=== PATIENT | female | born 1960 | race Caucasian/White ===

== ENCOUNTER 2023-12-13 09:47 | Emergency (ER) | payer BC, SELFPAY ==
[2023-12-13 10:03] VITALS: BP 149/96
[2023-12-13 10:55] VITALS: BMI 29.1
--- NOTE | 2023-12-13 11:00 | ED.GENMED ---
History of Present Illness
General
Chief Complaint: Abdominal Symptoms
Time Seen by Provider: 12/13/23 10:31
Travel History
Have you had any contact with someone who has COVID-19?: No
Do you have any symptoms of coronavirus? Fever > 100 degrees, chills, cough, shortness of breath, sore throat, loss of taste or smell, muscle aches, or headache?: No
History of Present Illness
History of Present Illness:
63-year-old female with history of diverticulitis presents the emergency department for evaluation of left-sided abdominal tenderness gradually worsening over the past 3 weeks associated with vomiting and diarrhea. Diarrhea has become more watery
and loose with scant amounts of blood over the past few days. Feels comparable to prior bout of diverticulitis. Denies any Fever, chills, sweats.
Past History
Past History
ED Past Medical History: None
ED Past Surgical History: None
Social History
Tobacco: Smoker
Living: with family
Family History
Family History: Other (Noncontributory)
Review of Systems
Review of Systems
Allergies reviewed?: Yes
All Other Systems: ROS reviewed and negative except as documented in HPI and ROS
Phy Exam
Physical Exam
Physical Exam:
GEN: Well appearing, NAD, WDWN
Eyes: PERRLA, EOMs intact, no scleral icterus
HENT: NCAT, oral mucosa moist
Lungs: CTAB, no wheezes, rales, rhonchi, normal chest wall excursion
Cardiac: RRR, no M/R/G, no peripheral edema. Radial pulses 2+ bilat
Abdomen: S, NT, ND, NABS, no masses or hepatosplenomegaly
Neuro: AO x 3
MSK: No gross deformity or ecchymosis
Skin: No rashes, petechiae. Normal color, no pallor or jaundice.
Psych: Calm, cooperative, proper hygiene
Course
Orders/Labs/Results
Orders:
Orders
12/13/23 10:48
IV Insert/Care/Rem.- Treatment PRN
12/13/23 10:56
CT Abd/Pel (IV only)-DH only Urgent
Comment:
Reason For Exam: LLQ pain
0.9% Sodium Chloride 1000 ml [Nss] 1,000 ml IV BOLUS
Ketorolac [Toradol] 15 mg IV NOW STA
Ondansetron Injectable [Zofran] 4 mg IV NOW STA
12/13/23 11:01
Complete Blood Count/With Diff Urgent
Comprehensive Metabolic Panel Urgent
Lipase Urgent
Abnormal Lab Results
12/13/23
11:01
WBC 14.2 H 10^3/uL
(4.8-10.8)
MPV 11.1 H fL
(7.4-10.4)
Abs Immat Gran (auto) 0.1 H 10^3/uL
(0-0.05)
Absolute Neuts (auto) 11.5 H 10^3/uL
(1.4-6.5)
Absolute Monos (auto) 1.0 H 10^3/uL
(0.1-0.6)
Immature Gran % 0.6 H %
(0-0.5)
Neutrophils % 81.2 H %
(42.2-75.2)
Lymphocytes % 10.3 L %
(20.5-51.1)
Alkaline Phosphatase 127 H U/L
(38-126)
12/13/23 11:01
12/13/23 11:01
Vital Signs
Initial and Last Documented VS:
Initial Vital Signs
Temp Pulse Resp BP Pulse Ox
97.9 F 105 16 149/96 94
12/13/23 10:03 12/13/23 10:03 12/13/23 10:03 12/13/23 10:03 12/13/23 10:03
Last Documented Vital Signs
Temp Pulse Resp BP Pulse Ox
97.9 F 85 16 116/62 95
12/13/23 10:03 12/13/23 13:00 12/13/23 13:00 12/13/23 13:00 12/13/23 13:00
MDM/Problems Addressed
MDM/Problems Addressed:
63-year-old female presents with left-sided abdominal discomfort. Her workup reveals mild leukocytosis but otherwise normal electrolytes. She is clinically well-appearing with only minimal tenderness on exam. CT was obtained which shows mild
acute diverticulitis. She is allergic to penicillins thus we will treat her with ciprofloxacin and metronidazole. She is tolerating p.o. fluids was given 1 L of IV fluids for rehydration in the emergency department. Discussed importance of clear
liquid diet and preventatively a high-fiber diet to begin after completion of antibiotics. Further supportive care and return parameters discussed
*Critical Care Note
Total Time (30-74mins, 75-104mins- exclusive of procedures): Not Applicable
ED Attending Note
-
Portions of this chart may have been created with voice recognition software.� Occasional wrong word or��sound alike� substitutions may have occurred due to the inherent limitations of voice recognition software.
Discharge Plan
Departure
Patient Disposition: Home (Routine Discharge)
Date of Disposition: 12/13/23
Time of Disposition: 12:41
Patient with high blood pressure during this ER visit?: No
Discharge Problem:
Diverticulitis
Instructions: Diverticulitis (DC), Clear Liquid Diet
Prescriptions:
New
ciprofloxacin HCl [Cipro] 500 mg tablet
500 mg PO BID 10 Days Qty: 20 0RF
metronidazole 500 mg tablet
500 mg PO Q8H 10 Days Qty: 30 0RF
No Action
ibuprofen [Advil Liqui-Gel] 200 MG capsule
1 - 3 mg PO Q6HPRN PRN (Reason: pain)
hydrocodone-acetaminophen [Vicodin] 1 EACH tablet
1 ea PO Q6HPRN PRN (Reason: pain) Qty: 15 0RF
doxycycline hyclate 100 MG tablet
100 mg PO BID Qty: 28 0RF
methylprednisolone [Medrol (Osiel)] 4 MG tablets,dose pack
4 tab PO . DIRECT Qty: 1 0RF
Referrals:
Erin Norris MD [Family Provider] -
Activity Restrictions/Additional Instructions:
Clear liquid diet x 48 hours, then progress to normal diet as tolerated
HIGH FIBER DIET (25-35g daily) is important to prevent future disease, however do not start this until after antibiotics are completed
Return to the ER if you develop a fever, or worsening pain
Interventions
Interventions:
*Risk Screen - Suicide Last Done: 12/13/23 10:55
*General Assessment Last Done: 12/13/23 10:55
*Neglect/Abuse Screening Last Done: 12/13/23 10:55
ED- Fall Risk Assessment Last Done: 12/13/23 10:55
*ED COVID-19 Vaccine History Last Done: 12/13/23 10:08
*Nursing Disposition Last Done: 12/13/23 13:05
YQ-Rxgnum-Olpyrsxrmf Assessment Last Done: 12/13/23 10:55
Discharge Date and Time
Discharge Date/Time: 12/13/23 13:05
[2023-12-13 11:13] LABS: % Basophils 0.4 % (0-2); % Eosinophils 0.4 % (0-6); % Immature Granulocytes 0.6 % (0-0.5); % Lymphocytes 10.3 % (20.5-51.1); % Monocytes 7.1 % (1.7-9.3); % Neutrophils 81.2 % (42.2-75.2); Absolute Basophils 0.1 10^3/uL (0-0.2); Absolute Eosinophils 0.1 10^3/uL (0-0.7); Absolute Immature Granulocytes 0.1 10^3/uL (0-0.05); Absolute Lymphocytes 1.5 10^3/uL (1.2-3.4); Absolute Neutrophils 11.5 10^3/uL (1.4-6.5); Hemoglobin 14.5 g/dL (12.0-16.0); Mean Corp Hgb Conc. 34.5 g/dL (33.0-37.0); Mean Corpuscular Hgb 30.4 pg (27.0-31.0); Mean Corpuscular Volume 88.1 fL (81.0-99.0); Mean Platelet Volume 11.1 fL (7.4-10.4); Nucleated Red Blood Cells % 0 %; Platelet Count 307 10^3/uL (130-400); Red Blood Cell Count 4.77 10^6/uL (4.20-5.40); Red Cell Dist. Width 13.1 % (11.5-14.5); White Blood Cell Count 14.2 10^3/uL (4.8-10.8)
[2023-12-13 11:26] LABS: ALT (SGPT) 27 U/L (0-35); AST (SGOT) 25 U/L (14-36); Albumin 4.8 g/dl (3.5-5.0); Alkaline Phosphatase 127 U/L (38-126); Blood Urea Nitrogen 10 mg/dl (7-17); Calcium 9.6 mg/dl (8.4-10.2); Carbon Dioxide 23 mmol/L (22-30); Chloride 106 mmol/L (98-107); Estimated Creatinine Clearance 85 ml/min; Glucose 99 mg/dl (70-99); Lipase 103 U/L (23-300); Potassium 3.9 mmol/L (3.5-5.1); Sodium 139 mmol/L (135-145); Total Bilirubin 0.5 mg/dl (0.2-1.3); Total Protein 7.4 g/dl (6.3-8.2); eGFR > 60.00
[2023-12-13] MEDS: NSS 1000 IV (11:37)
[2023-12-13] MEDS: TORADOL 15 MG IV (11:39)
[2023-12-13] MEDS: ZOFRAN 4 MG IV (11:39)
[2023-12-13 11:43] VITALS: BP 126/70
[2023-12-13 13:00] VITALS: BP 116/62
--- NOTE | 2023-12-13 13:00 | EDRN ---
Pt was awoken from just having a nap for her discharge.
== END 2023-12-13 13:05 | disposition home or self-care (01) ==
LOC: EMR 09:47
PROVIDERS: Physician Assistant; EMERGENCY PHYSICIAN Emergency Medicine; FAMILY PHYSICIAN Internal Medicine
DX: K57.32 Diverticulitis of large intestine without perforation or abscess without bleeding (principal); F17.200 Nicotine dependence, unspecified, uncomplicated; Z88.0 Allergy status to penicillin
CPT/HCPCS: 99284; 96374; 96375; 96361; 74177; 80053; 83690; 85025; Q9967

== ENCOUNTER → 2024-01-14 12:09 | Outpatient (REF) | payer BC, SELFPAY ==
[2024-01-14 14:27] LABS: % Eosinophils 1.5 % (0-6); % Immature Granulocytes 0.7 % (0-0.5); % Lymphocytes 35.6 % (20.5-51.1); % Monocytes 6.8 % (1.7-9.3); % Neutrophils 54.4 % (42.2-75.2); Absolute Basophils 0.1 10^3/uL (0-0.2); Absolute Eosinophils 0.1 10^3/uL (0-0.7); Absolute Immature Granulocytes 0.1 10^3/uL (0-0.05); Absolute Lymphocytes 2.4 10^3/uL (1.2-3.4); Absolute Monocytes 0.5 10^3/uL (0.1-0.6); Absolute Neutrophils 3.7 10^3/uL (1.4-6.5); Hemoglobin 14.9 g/dL (12.0-16.0); Mean Corp Hgb Conc. 33.1 g/dL (33.0-37.0); Mean Corpuscular Hgb 29.7 pg (27.0-31.0); Mean Corpuscular Volume 89.6 fL (81.0-99.0); Mean Platelet Volume 11.6 fL (7.4-10.4); Nucleated Red Blood Cells % 0 %; Platelet Count 291 10^3/uL (130-400); Red Blood Cell Count 5.02 10^6/uL (4.20-5.40); Red Cell Dist. Width 13.2 % (11.5-14.5); White Blood Cell Count 6.7 10^3/uL (4.8-10.8)
[2024-01-14 14:42] LABS: ALT (SGPT) 27 U/L (0-35); AST (SGOT) 32 U/L (14-36); Albumin 4.6 g/dl (3.5-5.0); Alkaline Phosphatase 120 U/L (38-126); Blood Urea Nitrogen 9 mg/dl (7-17); Carbon Dioxide 29 mmol/L (22-30); Chloride 105 mmol/L (98-107); Glucose 86 mg/dl (70-99); Potassium 4.1 mmol/L (3.5-5.1); Sodium 140 mmol/L (135-145); Total Bilirubin 0.4 mg/dl (0.2-1.3); Total Protein 7.2 g/dl (6.3-8.2); eGFR > 60.00
== END ==
LOC: REG 12:09
PROVIDERS: ATTENDING PHYSICIAN Nurse Practitioner Family
DX: R10.32 Left lower quadrant pain (principal); K57.92 Diverticulitis of intestine, part unspecified, without perforation or abscess without bleeding
CPT/HCPCS: 36415; 74177; 80053; 85025; Q9967

== ENCOUNTER → 2024-04-29 09:39 | Outpatient (REF) | payer BC, SELFPAY | LOC: WDC 09:39 | PROVIDERS: ATTENDING PHYSICIAN Nurse Practitioner Family | DX: Z12.31 Encounter for screening mammogram for malignant neoplasm of breast (principal) | CPT/HCPCS: 77063; 77067 ==

== ENCOUNTER 2024-08-08 17:07 | Emergency (ER) | payer BC, SELFPAY ==
[2024-08-08 17:19] VITALS: BP 148/89
[2024-08-08 17:35] LABS: % Basophils 0.8 % (0-2); % Immature Granulocytes 0.6 % (0-0.5); % Lymphocytes 35.5 % (20.5-51.1); % Monocytes 7.7 % (1.7-9.3); % Neutrophils 53.4 % (42.2-75.2); Absolute Basophils 0.1 10^3/uL (0-0.2); Absolute Eosinophils 0.2 10^3/uL (0-0.7); Absolute Immature Granulocytes 0.1 10^3/uL (0-0.05); Absolute Lymphocytes 3.1 10^3/uL (1.2-3.4); Absolute Monocytes 0.7 10^3/uL (0.1-0.6); Absolute Neutrophils 4.7 10^3/uL (1.4-6.5); Hematocrit 40.5 % (37.0-47.0); Hemoglobin 14.1 g/dL (12.0-16.0); Mean Corp Hgb Conc. 34.8 g/dL (33.0-37.0); Mean Corpuscular Hgb 30.2 pg (27.0-31.0); Mean Corpuscular Volume 86.7 fL (81.0-99.0); Mean Platelet Volume 10.8 fL (7.4-10.4); Nucleated Red Blood Cells % 0 %; Platelet Count 278 10^3/uL (130-400); Red Blood Cell Count 4.67 10^6/uL (4.20-5.40); Red Cell Dist. Width 13.1 % (11.5-14.5); White Blood Cell Count 8.9 10^3/uL (4.8-10.8)
[2024-08-08 17:50] LABS: ALT (SGPT) 18 U/L (0-35); AST (SGOT) 23 U/L (14-36); Albumin 4.6 g/dl (3.5-5.0); Alkaline Phosphatase 101 U/L (38-126); Blood Urea Nitrogen 16 mg/dl (7-17); Calcium 9.6 mg/dl (8.4-10.2); Carbon Dioxide 26 mmol/L (22-30); Chloride 103 mmol/L (98-107); Glucose 108 mg/dl (70-99); Potassium 3.8 mmol/L (3.5-5.1); Sodium 140 mmol/L (135-145); Total Bilirubin 0.2 mg/dl (0.2-1.3); Total Protein 7.1 g/dl (6.3-8.2); eGFR > 60.00
[2024-08-08 18:02] LABS: Troponin I < 0.012 ng/ml
--- NOTE | 2024-08-08 20:28 | ED.GENMED ---
History of Present Illness
General
Chief Complaint: Chest Pain
Source: patient
Exam Limitations: none
Time Seen by Provider: 08/08/24 19:43
Nursing documentation reviewed up to this point in time: agreed with
History of Present Illness
History of Present Illness:
64 y/o F with no sig pmh
here with chest pain
has had left sided anterior chest pain, which comes and goes spontaneously, feeling like ache or pressure and has varied in intensity and length for 2 weeks
she says last night she felt it intermittently throughout the night, better if she lays on L side
she says she felt it worse today while she was seated at work and it was still comiing and goign but stronger and worried her
she felt a little sweaty earlier today in [facility] but she is n'tsure if that was because she was getting nervous
no pleuritic pain, no exertional pain
feels better if she presses on it
no fever, chills, cough ,leg sewlling, recent travel, PE RF
no fhx of premature CAD
nonsmoker
Past History
Past History
ED Past Medical History: None
ED Past Surgical History: None
Social History
Tobacco: Smoker
Living: with family
Family History
Family History: Other (Noncontributory)
Review of Systems
Review of Systems
Allergies reviewed?: Yes
All Other Systems: Not applicable
Phy Exam
Physical Exam
Physical Exam:
GENERAL: Alert , in no apparent distress
EYE: pupils equal and reactive
NECK: Supple
ENT: o/p clr, mmm.
CARDIAC: Regular rate and rhythm .
chest wall: left sided upper chest wall reproduces the pain
LUNGS: Clear breath sounds bilaterally, no acute respiratory distress, no wheezes/rales/rhonchi
ABDOMEN: Soft, without focal tenderness, no r/g, no cvat, normal bowel sounds
NEUROLOGICAL: Alert and oriented, no focal neuro deficits
SKIN: Warm and dry, skin intact.
MUSCULOSKELETAL: No edema, well perfused. neg tyrese's sign
PSYCH: Normal and appropriate interaction.
Scores
Heart Score for Chest Pain Patients
STEMI patient?: No
History: Slightly or Non-Suspicious
ECG: Normal
Age: >/= 65 years
Risk Factors: No Risk Factors
Troponin: </= Normal Limit
Heart Score for Chest Pain Patients: 2
Heart Score Risk: 2.5% MACE over next 6 weeks
Course
Orders/Labs/Results
Orders:
Orders
08/08/24 17:07
Electrocardiogram (*1) Urgent
Reason for Study: Chest Pain
EKG- Treatment ONCE
08/08/24 17:26
Complete Blood Count/With Diff Urgent
Comprehensive Metabolic Panel Urgent
Troponin I Urgent
08/08/24 20:22
Electrocardiogram (*1) Urgent
Reason for Study: Chest Pain
EKG- Treatment ONCE
CR Chest - 2 Views Urgent
Comment:
Reason For Exam: chest pain x 2 weeks
08/08/24 20:36
Troponin I Urgent
Abnormal Lab Results
08/08/24
17:26
MPV 10.8 H fL
(7.4-10.4)
Abs Immat Gran (auto) 0.1 H 10^3/uL
(0-0.05)
Absolute Monos (auto) 0.7 H 10^3/uL
(0.1-0.6)
Immature Gran % 0.6 H %
(0-0.5)
Glucose 108 H mg/dl
(70-99)
08/08/24 17:26
08/08/24 17:26
Vital Signs
Initial and Last Documented VS:
Initial Vital Signs
Temp Pulse Resp BP Pulse Ox
98.5 F 81 18 148/89 98
08/08/24 17:19 08/08/24 17:19 08/08/24 17:19 08/08/24 17:19 08/08/24 17:19
Last Documented Vital Signs
Temp Pulse Resp BP Pulse Ox
97.8 F 66 16 120/68 99
08/08/24 21:46 08/08/24 21:46 08/08/24 21:46 08/08/24 21:46 08/08/24 21:46
MDM/Problems Addressed
Differential Diagnosis Includes:
ACS, msk chest pain, GERD, anxiety
MDM/Problems Addressed:
64 y/o F
no chronic medical problems
2 weeks intermittent L upper chest pain, reproducible sometimes with pushing, sometimes feels better with palpation, not exertional but episodes were starting to be more frequent and more intense today so she came ot hte ERE.P
no PE rf
well appearing
ekg normal
reproducible tenderness L upper chest wall
trop neg
wbc normal
heart score 2 for age only
no other RF
2nd trop and ekg neg
unlikely ACS secondary to length of sypmtomsan dnature of the description of the pain being nonexertional, lasting short time, and reproducible
cxr indep reviewed
small area atelectasis L base
d/w pt
f/u for repeat cxr
*Critical Care Note
Total Time (30-74mins, 75-104mins- exclusive of procedures): Not Applicable
ED Attending Note
-
Portions of this chart may have been created with voice recognition software.� Occasional wrong word or��sound alike� substitutions may have occurred due to the inherent limitations of voice recognition software.
Discharge Plan
Departure
Patient Disposition: Home (Routine Discharge)
Date of Disposition: 08/08/24
Time of Disposition: 21:38
Patient with high blood pressure during this ER visit?: No
Covid-19: Not Applicable
Discharge Problem:
Chest pain
Instructions: Chest Pain PCP Follow Up, BLOOD PRESSURE
Prescriptions:
No Action
ibuprofen [Advil Liqui-Gel] 200 MG capsule
1 - 3 mg PO Q6HPRN PRN (Reason: pain)
hydrocodone-acetaminophen [Vicodin] 1 EACH tablet
1 ea PO Q6HPRN PRN (Reason: pain) Qty: 15 0RF
doxycycline hyclate 100 MG tablet
100 mg PO BID Qty: 28 0RF
methylprednisolone [Medrol (Osiel)] 4 MG tablets,dose pack
4 tab PO . DIRECT Qty: 1 0RF
ciprofloxacin HCl [Cipro] 500 mg tablet
500 mg PO BID 10 Days Qty: 20 0RF
metronidazole 500 mg tablet
500 mg PO Q8H 10 Days Qty: 30 0RF
Referrals:
UNKNOWN - PT DOES,NOT KNOW [Unknown Provider] -
Activity Restrictions/Additional Instructions:
YOUR PAIN IS UNLIEKLY TO BE CAUSED BY A CARDIAC EMERGENCY
YOU SHOULD FOLLOW UP WITH YOUR DOCTOR FOR FURTHER WORK UP; THEY MAY REFER YOU TO A [employer]CH[employer]ECT[employer] FOR ADDITIONAL TESTING
TRY TYLENOL OR IBUPROFEN FOR PAIN NEEDED
YOU HAD A LITTLE MUCUS PLUGGING IN YOUR CHEST XRAY
IF YOU HAVE A COUGH/FEVER DEVELOP PLEASE GET RECHECKED
RETURN FOR: SEVERE PAIN, TROUBLE BREATHING, PAINFUL BREATHING, PASSING OUT, OR ANY CONCERNS.
Interventions
Interventions:
*Risk Screen - Suicide Last Done: 08/08/24 17:19
*General Assessment Last Done: 08/08/24 17:19
*Neglect/Abuse Screening Last Done: 08/08/24 17:19
ED- Fall Risk Assessment Last Done: 08/08/24 21:49
*ED COVID-19 Vaccine History Last Done: 08/08/24 17:19
*Nursing Disposition Last Done: 08/08/24 21:53
ED- Cardiac Assessment Last Done: 08/08/24 21:36
Discharge Date and Time
Discharge Date/Time: 08/08/24 21:53
Print Language: SETSWANA
[2024-08-08 21:06] LABS: Troponin I < 0.012 ng/ml
[2024-08-08 21:46] VITALS: BP 120/68
== END 2024-08-08 21:53 | disposition home or self-care (01) ==
LOC: EMR 17:07
PROVIDERS: Emergency Medicine; Physician Assistant; EMERGENCY PHYSICIAN Emergency Medicine; FAMILY PHYSICIAN Nurse Practitioner Family
DX: R07.89 Other chest pain (principal)
CPT/HCPCS: 99285; 71046; 80053; 84484; 85025; 93005

== ENCOUNTER → 2024-10-02 10:42 | Outpatient (REF) | payer BC, SELFPAY | LOC: HWRAD 10:42 | PROVIDERS: ATTENDING PHYSICIAN Internal Medicine Gastroenterology; FAMILY PHYSICIAN Nurse Practitioner Family | DX: K57.92 Diverticulitis of intestine, part unspecified, without perforation or abscess without bleeding (principal) | CPT/HCPCS: 74261 ==

== ENCOUNTER → 2025-06-02 07:27 | Outpatient (REF) | payer BC, SELFPAY | LOC: WDC 07:27 | PROVIDERS: ATTENDING PHYSICIAN Nurse Practitioner Family | DX: Z12.31 Encounter for screening mammogram for malignant neoplasm of breast (principal) | CPT/HCPCS: 77063; 77067 ==